=== PATIENT | female | born 1960 | race African-American/Black ===

== ENCOUNTER 2016-09-25 04:29 | Emergency (ER) | payer OTHER ==
[~2016-09-25] VITALS: Ht 172.7 cm; Wt 104.3 kg
[2016-09-25] MEDS ORDERED: LISINOPRIL-HCT1 EAC2 PO (04:46)
--- NOTE | 2016-09-25 04:54 | ED AMS/SEIZURE/WEAK/DIZZY ---
See Addendum History of Present Illness General Chief Complaint: Nausea, Vomiting, Diarrhea Stated Complaint: +NVD Source: patient, family, old records, EMS Exam Limitations: no limitations Vital Signs & Intake/Output Vital Signs & Intake/Output Vital Signs Date Time Temp Pulse Resp B/P Pulse O2 O2 Flow FiO2 Ox Delivery Rate 09/25 0439 97.8 77 20 163/95 95 Room Air Allergies Coded Allergies: No Known Allergies (09/25/16) Reconcile Medications Lisinopril/Hydrochlorothiazide (Lisinopril-Hctz 10-12.5 MG Tab) 10 MG-12.5 MG TABLET 1 TAB PO DAILY HTN (Reported) Triage Note: PT BIBA FROM HOME WITH N/V/D AND C/O VERTIGO SINCE 89. HX:HTN. PT STATES SHE THREW UP HER LISINOPRIL. 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 PT AFEBRILE. Triage Nurses Notes Reviewed? yes Onset: 2 days Duration: day(s):, continues in ED, waxing and waning Timing: recent history Injury Environment: home Severity: severe Modifying Factors: Improves With: rest. Worsens With: movement. LMP (ages 10-50): post menopausal : No Patient currently breastfeeds: No HPI: 2 days prior to admission patient complains of episodic dizziness with nausea. One day prior to admission episodes became worse associated with nausea vomiting diarrhea ringing her years with decreased hearing. She denies fever chills chest pain cough shortness of breath headache dysuria rash bleeding. Past History Travel History Traveled to [place] past 21 day No Medical History Any Pertinent Medical History? see below for history Cardiovascular: hypertension Surgical History Surgical History: non-contributory Psychosocial History What is your primary language Italian Tobacco Use: Never used ETOH Use: occasional use Family History Hx Contributory? No Review of Systems Review of Systems Constitutional: Reports: no symptoms, malaise, weakness. EENTM: Reports: see HPI, hearing changes. Respiratory: Reports: no symptoms. Cardiovascular: Reports: no symptoms. GI: Reports: see HPI, diarrhea, nausea, vomiting. Genitourinary: Reports: no symptoms. Musculoskeletal: Reports: no symptoms. Skin: Reports: no symptoms. Neurological/Psychological: Reports: no symptoms. Hematologic/Endocrine: Reports: no symptoms. Immunologic/Allergic: Reports: no symptoms. All Other Systems: Reviewed and Negative Physical Exam Physical Exam General Appearance: well developed/nourished, alert, awake, anxious, severe distress Head: atraumatic, normal appearance Eyes: Bilateral: normal appearance, PERRL, other (nystagmus). Ears, Nose, Throat: normal pharynx, normal ENT inspection Neck: normal inspection, supple, full range of motion Respiratory: normal breath sounds, chest non-tender, no respiratory distress, quiet respiration, lungs clear Cardiovascular: regular rate/rhythm, normal peripheral pulses, norml femoral pulses equa Peripheral Pulses: 4+ carotid (R), 4+ carotid (L) Gastrointestinal: normal bowel sounds, soft, non-tender, no organomegaly Back: normal inspection, normal range of motion Extremities: normal range of motion, no ligament instability Neurologic/Psych: no motor/sensory deficits, awake, alert, oriented x 3, normal gait, normal mood/affect, 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 Skin: intact, normal color, warm/dry Lymphatic: no anterior cervical shiloh Core Measures ACS in differential dx? No CVA/TIA Diagnosis: No Severe Sepsis Present: No Septic Shock Present: No Progress Differential Diagnosis: arrythmia, benign positional vertigo, electrolyte imbalance, labrynthitis Plan of Care: Orders Procedure Date/time Status MAGNESIUM 09/25 452 Complete COMPREHENSIVE METABOLIC PANEL 09/25 452 Complete CBC WITHOUT DIFFERENTIAL 09/25 452 Complete Laboratory Tests 09/25/16 0445: Anion Gap 14, Estimated GFR 52 L, BUN/Creatinine Ratio 19.1, Glucose 152 H, Calcium 9.9, Magnesium 1.7, Total Bilirubin 0.4, AST 24, ALT 33, Alkaline Phosphatase 62, Total Protein 8.3 H, Albumin 4.4, Globulin 3.9, Albumin/ Globulin Ratio 1.1, CBC w Diff NO MAN DIFF REQ, RBC 4.29, MCV 87.9, MCH 29.3, RDW 13.2, MPV 7.4, Gran % 59.5, Lymphocytes % 31.7, Monocytes % 6.1, Eosinophils % 2.2, Basophils % 0.5, Absolute Granulocytes 5.4, Absolute Lymphocytes 2.9, Absolute Monocytes 0.6, Absolute Eosinophils 0.2, Absolute Basophils 0, PUBS MCHC 33.3 Initial ED EKG: none Departure Departure Time of Disposition: 653 Disposition: HOME OR SELF CARE Condition: Stable Clinical Impression Primary Impression: Vertigo Secondary Impressions: Nausea vomiting and diarrhea Referrals: REVA CARR APRN (PCP/Family) Departure Forms: Customer Survey General Discharge Information Prescriptions: Current Visit Scripts Ondansetron (Zofran Odt) 1 TAB SL TID PRN nausea #15 TAB Meclizine HCl 1 TAB PO TIDPRN PRN dizziness #30 TAB
[2016-09-25 05:04] LABS: ABSOLUTE BASOPHIL COUNT 0 /CUMM (0.0-0.2); ABSOLUTE EOSINOPHIL COUNT 0.2 /CUMM (0.0-0.7); ABSOLUTE GRANULOCYTE CT 5.4 /CUMM (1.4-6.5); ABSOLUTE LYMPH COUNT 2.9 /CUMM (1.2-3.4); ABSOLUTE MONOCYTE COUNT 0.6 /CUMM (0.10-0.60); BASOPHIL % 0.5 % (0.0-2.0); EOSINOPHIL % 2.2 % (0-5); GRANULOCYTE % 59.5 % (42.2-75.2); HEMATOCRIT 37.7 % (37-47); MEAN CORPUSCULAR HGB 29.3 PG (27.0-31.0); MEAN CORPUSCULAR HGB CONC 33.3 G/DL (33.0-37.0); MEAN CORPUSCULAR VOLUME 87.9 FL (81.0-99.0); MEAN PLATELET VOLUME 7.4 FL (7.4-10.4); PLATELET COUNT 390 /CUMM (130-400); RBC DISTRIBUTION WIDTH 13.2 % (11.5-14.5); RED BLOOD CELL CT 4.29 /CUMM (4.20-5.40)
[2016-09-25] MEDS ORDERED: ZOFRAN ODT4 M1 SL (07:04)
[2016-09-25] MEDS ORDERED: MECLIZINE HCL25 MG PO (07:04)
[2016-09-25] MEDS ORDERED: PROMETHAZINE HC25 M3 PO (11:11)
[2016-09-25 12:09] VITALS: BP 133/84
== END 2016-09-25 12:16 ==
LOC: ERH 04:29
PROVIDERS: Emergency Medicine
DX: R42 Dizziness and giddiness (principal); R11.2 Nausea with vomiting, unspecified; R19.7 Diarrhea, unspecified
CPT/HCPCS: 96361; 96374; 96375; J2405; J2550; J2765

== ENCOUNTER 2018-02-12 16:56 | Emergency (ER) | payer OTHER ==
[~2018-02-12] VITALS: Ht 172.7 cm; Wt 105.2 kg
[~2018-02-12 16:56] MED LIST: LISINOPRIL-HCT1 EAC2 PO; MECLIZINE HCL25 MG PO; PROMETHAZINE HC25 M3 PO; ZOFRAN ODT4 M1 SL
[2018-02-12 18:45] VITALS: BP 182/102
--- NOTE | 2018-02-12 18:53 | RADIOLOGY REPORT ---
EXAMINATION: XR KNEE, RIGHT CLINICAL INFORMATION: Right knee pain. COMPARISON: None TECHNIQUE: Four views of the right knee. FINDINGS: Normal osseous mineralization. There is mild narrowing of the medial knee joint space. Small marginal osteophytes are noted from the medial margin of the medial compartment. A 0.8 cm ossific densities noted adjacent to the medial aspect of the medial tibial plateau which may represent an osteophyte versus sequela of prior trauma versus soft tissue calcification/ossification. No evidence of acute fracture or dislocation. Enthesopathic changes are noted along the patella. Degenerative changes are noted in the patellofemoral compartment. No evidence of suprapatellar joint effusion. Varicose veins are noted in the subcutaneous tissue of the proximal leg medially. IMPRESSION: No acute pulmonary process. [id number] degenerative changes in the medial compartment and mild degenerative changes in the patellofemoral compartment of the right knee.
--- NOTE | 2018-02-12 19:21 | ED UPPER/LOWER EXTREMITY COMPL ---
History of Present Illness General Chief Complaint: Lower Extremity Problems Stated Complaint: RIGHT KNEE Source: patient Exam Limitations: no limitations Vital Signs & Intake/Output Vital Signs & Intake/Output Vital Signs Date Time Temp Pulse Resp B/P B/P Pulse O2 O2 Flow FiO2 Mean Ox Delivery Rate 02/12 1845 98.4 62 18 182/102 98 Room Air Room Air 02/12 1706 96.1 02/12 1704 96.1 71 18 172/112 96 Room Air ED Intake and Output 02/13 0000 02/12 1200 Intake Total 0 Output Total Balance 0 Intake, Oral 0 Patient 232 lb Weight Weight Reported by Patient Measurement Method Allergies Coded Allergies: No Known Allergies (09/25/16) Reconcile Medications Lisinopril/Hydrochlorothiazide (Lisinopril-Hctz 10-12.5 MG Tab) 10 MG-12.5 MG TABLET 1 TAB PO DAILY HTN (Reported) Meclizine HCl 25 MG TABLET 1 TAB PO TIDPRN PRN dizziness Ondansetron (Zofran Odt) 4 MG TAB.RAPDIS 1 TAB SL TID PRN nausea Oxycodone HCl/Acetaminophen (Percocet 5-325 MG Tablet) 5 MG-325 MG TABLET 1-2 TAB PO Q6P PRN PAIN Promethazine HCl 25 MG TABLET 1-2 TAB PO Q6P PRN NAUSEA/VOMITING Triage Note: PT STATES SHE "DID SOMETHING TO MY KNEE". PT STATES SHE IS HAVING SWELLING AND BRUISING TO RIGH KNEE. PT STATES SHE HURT A POP WHEN SHE WAS WALKING UP THE STAIRS THE OTHER DAY. Triage Nurses Notes Reviewed? yes HPI: Patient presents with pain and swelling to her right knee. Patient states she was walking up the stairs 2 days ago and heard a pop. Since then she has had pain and swelling. The pain increases with ambulation. There is no radiation of the pain. The pain is aching and throbbing in nature. She rates the pain at 6 out of 10. Past History Travel History Traveled to [place] past 21 day No Medical History Any Pertinent Medical History? see below for history Cardiovascular: hypertension Surgical History Surgical History: non-contributory Psychosocial History What is your primary language Maldivian Tobacco Use: Never used ETOH Use: occasional use Illicit Drug Use: denies illicit drug use Family History Hx Contributory? No Review of Systems Review of Systems Constitutional: Reports: no symptoms. Respiratory: Reports: no symptoms. Cardiovascular: Reports: no symptoms. Musculoskeletal: Reports: see HPI, joint pain, joint swelling. Neurological/Psychological: Reports: no symptoms. Immunological: Reports: no symptoms. Physical Exam Physical Exam General Appearance: well developed/nourished, alert, awake Eyes: Bilateral: PERRL, EOMI. Neck: normal inspection, supple, full range of motion Knee Right: swelling, tenderness Knee Ligaments Right: STABLE Foot Right: normal inspection Neurologic/Tendon: normal sensation, normal motor functions, normal tendon functions Progress Differential Diagnosis: contusion, dislocation, fracture, sprain Plan of Care: Orders Procedure Date/time Status Durable Medical Equipment 02/12 1919 Active Comments: I discussed with the patient signs and symptoms of a deep pain thrombosis and she promises to return immediately to the emergency department for an ultrasound if she develops any other symptoms. Departure Departure Disposition: HOME OR SELF CARE Condition: Stable Clinical Impression Primary Impression: Strain of right knee Qualifiers: Encounter type: initial encounter Qualified Code: S86.911A - Strain of unspecified muscle(s) and tendon(s) at lower leg level, right leg, initial encounter Referrals: Cinthia Torres APRN (PCP/Family) Osmany Terry MD Additional Instructions: WEAR IMMOBILIZER FOR COMFORT TAKE PERCOCET NEEDED FOR PAIN FOLLOW UP WITH DR. TERRY RETURN IF YOU DEVELOP ANY PAIN OR SWELLING IN YOUR CALF OR LOWER LEG OR FOR ANY CONCERNS Departure Forms: Customer Survey General Discharge Information Prescriptions: Current Visit Scripts Oxycodone HCl/Acetaminophen (Percocet 5-325 MG Tablet) 1-2 TAB PO Q6P PRN PAIN #12 TAB Procedures Splinting Location: right knee Manual Alignment Performed: No Pre-Made Type: knee imobilizer Splint: knee Splint Applied By: splint applied by other Pre-Proc Neuro Vasc Exam: normal Post-Proc Neuro Vasc Exam: normal
[2018-02-12] MEDS ORDERED: PERCOCET 5-3251 EACH PO (19:22)
== END 2018-02-12 19:29 ==
LOC: ERH 16:56
DX: S86.811A Strain of other muscle(s) and tendon(s) at lower leg level, right leg, initial encounter (principal); X58.XXXA Exposure to other specified factors, initial encounter; Y92.89 Other specified places as the place of occurrence of the external cause; Y93.89 Activity, other specified
CPT/HCPCS: 73562-RT